=== PATIENT | male | born 1950 ===

== ENCOUNTER 2016-08-16 09:25 | Day surgery (SDC) | payer OTHER, MEDICARE ==
--- NOTE | ~2016-08-16 | OP ---
Record Of Operation [facility] [address] [place]. [address] NAME: BLAKE BLAIR : 52 STATUS : [facility]#: [id number] AGE: 66 ADM/REG DATE : 08/16/16 MR#: [id number] REPORT SERV DATE: 08/17/16 DICTATED BY: RANCHO ROMANO DATE: 08/16/16 REPORT STATUS : Draft TRANSCRIBED BY: ISIS DATE: 08/16/16 DATE OF PROCEDURE: 08/16/2016 PREOPERATIVE DIAGNOSIS: End-stage renal disease. POSTOPERATIVE DIAGNOSIS: End-stage renal disease. PROCEDURE: Left radiocephalic fistula. SURGEON: Rancho Romano M.D. TABLE MACHINE OPERATOR: Robert. ANESTHESIA: Block. INDICATIONS: The patient is a 66-year-old gentleman with end-stage renal disease secondary to hypertension. He had a PermCath placed a few days ago and he needs long-term dialysis access. I talked to him about the risks, benefits, and alternatives of intervention. He agreed to proceed. DESCRIPTION OF PROCEDURE: After informed consent was obtained, the patient was taken to the operating room and placed in the supine position on the operating table. A block had previously been administered. The patient's left upper extremity was prepped and draped in usual sterile fashion. I began with an ultrasound examination of the left upper extremity and found that the cephalic vein was about 2.8 mm in diameter. The radial artery was about 2.2 mm in diameter. A longitudinal skin incision was made at the level of the wrist. I dissected out the cephalic vein at the confluence point. I marked the vein for orientation. I ligated and divided it distally. I joined the two branches to create a large bailey for the anastomosis. I systemically heparinized. I controlled the radial artery after dissecting it out. It was about 2.2 mm in diameter. I created a longitudinal arteriotomy, onto which I sewed the end of the cephalic vein. I flushed of air and debris before tying down the sutures. Afterwards, there was good continuous forward flow within the fistula. It dilated up slightly. I washed out the wound, achieved hemostasis, and closed the wound in layers. The patient tolerated the procedure well without any intraprocedural complications noted. [employer] Rancho Romano M.D. / [id number] CC: Rancho Romano M.D. Record Of Operation [address] [place]. [address] NAME: BLAKE BLAIR : 52 STATUS : [facility] PAT#: [id number] AGE: 66 ADM/REG DATE : 08/16/16 MR#: [id number] REPORT SERV DATE: 08/17/16 DICTATED BY: RANCHO ROMANO DATE: 08/16/16 REPORT STATUS : Draft TRANSCRIBED BY: ISIS DATE: 08/16/16 Beau Gonzales MD
[2016-08-16] MEDS ORDERED: GLUCOTROL5 PO (10:17)
[2016-08-16 10:18] LABS: HEMATOCRIT 27.6 % (40.0-51.0); HEMOGLOBIN 9.1 g/dL (13.6-17.8)
[2016-08-16] MEDS ORDERED: ZOCOR40 (10:18)
[2016-08-16] MEDS ORDERED: VITD (10:18)
[2016-08-16] MEDS ORDERED: JANUVIA100 MG (10:18)
[2016-08-16] MEDS ORDERED: LOPID6 (10:19)
[2016-08-16] MEDS ORDERED: LISINOPRIL40 MG (10:19)
[2016-08-16] MEDS ORDERED: NORV10 (10:19)
[2016-08-16] MEDS ORDERED: LIPITOR20 (10:20)
[2016-08-16] MEDS ORDERED: ROCALTROL 0.0.25 MCG (10:20)
[2016-08-16] MEDS ORDERED: AMARYL4 (10:20)
[2016-08-16 10:28] LABS: BUN (BLOOD UREA NITROGEN) 43 MG/DL (6-23); CALCIUM, SERUM 7.7 MG/DL (8.5-10.4); CHLORIDE, SERUM 106 MMOL/L (96-112); CO2 (CARBON DIOXIDE) 25 MMOL/L (24-34); CREATININE 4.31 MG/DL (0.70-1.30); GFR AFRICAN AMERICAN 16 ML/MIN (>=60); GFR NON AFRICAN AMERICAN 13 ML/MIN (>=60); GLUCOSE, SERUM 315 MG/DL (60-99); SODIUM, SERUM 140 MMOL/L (135-148)
== END 2016-08-16 19:48 | disposition home or self-care (01) ==
LOC: SDC 09:25
PROVIDERS: Surgery
PROC: 031C0ZF Bypass Left Radial Artery to Lower Arm Vein, Open Approach (ICD-10-PCS; principal; 2016-08-16 10:45)
DX: I12.0 Hypertensive chronic kidney disease with stage 5 chronic kidney disease or end stage renal disease (principal); N18.6 End stage renal disease; D64.9 Anemia, unspecified; E11.22 Type 2 diabetes mellitus with diabetic chronic kidney disease; Z79.899 Other long term (current) drug therapy
CPT/HCPCS: 80048; 82962; 85014; 85018; 93005; J0690; J2250; J2370; J2405; J2710; J3010